=== PATIENT | male | born 1990 | race Hispanic/Latino ===

== ENCOUNTER 2022-03-23 05:50 | Day surgery (SDC) | payer OTHER ==
[2022-03-17 10:09] VITALS: BP 146/82
[2022-03-17 10:46] LABS: BASOPHIL # 0.1 10^3/uL (0.0-0.1); BASOPHIL % 0.7 % (0.0-0.2); EOSINOPHIL # 0.2 10^3/uL (0.0-0.2); EOSINOPHIL % 2.2 % (0.0-5.0); LYMPHOCYTES # 1.79 10^3/uL1 (1.0-4.8); LYMPHOCYTES % 24.2 % (24.0-44.0); MEAN CORP HGB 32.1 pg (26-34); MONOCYTES # 0.6 10^3/uL (0.3-0.8); MONOCYTES % 8.4 % (5.0-12.0); NEUTROPHIL # 4.8 10^3/uL (1.8-7.7); NEUTROPHILS % 64.4 % (41.0-85.0); PLATELET COUNT 318 10^3/uL (150-400); RED CELL DISTRIBUTION WIDTH 11.8 % (11.5-14.5)
[2022-03-17 11:03] LABS: CARBON DIOXIDE 26.7 mmol/L (20.0-32)
[2022-03-23] VITALS (7 sets, daily range): BP systolic 122–169; BP diastolic 60–94
[~2022-03-23] VITALS: Ht 182.9 cm; Wt 112.0 kg
[~2022-03-23 05:50] MED LIST: ANCEF ONE; LACTATED RINGERS 1,000 ML ONE; NS 100ML 100 ML IV ONE; PANT40TA6 PO
[2022-03-23] MEDS ORDERED: LACTATED RINGERS 1,000 ML IV SCH (06:00)
[2022-03-23] MEDS ORDERED: ANCEF 2 GM in NS 100ML 100 ML IV ONE (06:00)
[2022-03-23] MEDS ORDERED: TORADOL ONE (07:28)
[2022-03-23] MEDS ORDERED: XYLOCAINE 2% 5ML VIAL ONE (07:28)
[2022-03-23] MEDS ORDERED: DECADRON ONE (07:29)
[2022-03-23] MEDS ORDERED: SUBLIMAZE ONE (07:29)
[2022-03-23] MEDS ORDERED: ZOFRAN ONE (07:29)
[2022-03-23] MEDS ORDERED: DIPRIVAN IV ONE (07:29)
[2022-03-23] MEDS ORDERED: DILAUDID ONE (07:30)
[2022-03-23] MEDS ORDERED: NS 3000ML IRR IR ONE (07:32)
[2022-03-23] MEDS ORDERED: XYLOCAINE 1%-EPI 1:100,000 ONE (07:32)
[2022-03-23] MEDS ORDERED: SODIUM CHLORIDE IRR BOTTLE IR ONE (07:32)
[2022-03-23] MEDS ORDERED: VERSED ONE (08:10)
--- NOTE | 2022-03-23 09:59 | OPH ---
DATE OF SURGERY: 03/23/2022 DICTATOR NAME: Zach Fletcher MD PREOPERATIVE DIAGNOSIS: Osteochondral fracture of the right talus. POSTOPERATIVE DIAGNOSIS: Osteochondral fracture of the right talus. OPERATIVE PROCEDURES: 1. Diagnostic arthroscopy of the right ankle. 2. Subchondroplasty of the right talus. SURGEON: Zach Fletcher MD ANESTHESIA: LMA. TOURNIQUET TIME: 61 minutes at 300 mmHg. DRAINS: None. BLOOD LOSS: 10 mL. DESCRIPTION OF INDICATIONS: The patient is a 31-year-old male who injured his right ankle in 12/2021 while at work. The patient denies any previous problems with his ankle. Despite conservative treatment, the patient continued to complain of pain medially about the ankle as well as painful popping and catching. The patient's x-rays and MRI scan showed what appeared to be an osteochondral fracture about the superior medial dome of the talus. There was a question as to whether the cartilage was still intact or if it had collapsed. The patient was taken to the operating room today for arthroscopy to evaluate whether the lesion had collapsed and needed to be drilled and debrided or whether the cartilage was still intact and it would be amenable to subchondroplasty. DESCRIPTION OF PROCEDURE: The patient was placed on the operating table in the supine position. LMA anesthetic was induced without difficulty. The patient had the well-padded tourniquet placed around the right thigh. The right lower extremity was sterilely prepped and draped. The patient had the arthroscopic portals made anterolateral and anteromedial. The arthroscope was introduced anterolaterally. The patient had some osteophytes distally about the talonavicular area. There were no loose bodies encountered. He had a small spur about the distal end of his tibia, but did not appear to have any significant impingement. The patient's talus was noted to be intact medially as well as laterally. There was no collapse of the articular cartilage, so we decided to proceed with subchondroplasty. Using C-arm control, the cannulated drill was then drilled into the defect in the medial superior dome of the talus. The position of the cannulated drill appeared to be satisfactory. We then injected the talar defect with a total of 12 mL of calcium pyrophosphate. Arthroscope was reintroduced into the joint. There was no extravasation of the calcium pyrophosphate into the joint. Once the calcium pyrophosphate had set up, then the drill was removed. The wounds were closed with a 3-0 Ethilon. Compressive dressing consisting of Adaptic, 4 x 4s, cast padding and an Michael wrap was applied. The patient was extubated in the operating room and sent to recovery in stable condition. Zach Fletcher MD DR: EUGENE/DAVID TID: [id number] RECEIPT: [id number]
[2022-03-23] MEDS ORDERED: TRAM-47 PO (10:42)
== END 2022-03-23 10:50 | disposition home or self-care (01) ==
LOC: SDC 05:50
PROVIDERS: ATTEND Orthopaedic Surgery
DX: S92.141A Displaced dome fracture of right talus, initial encounter for closed fracture (principal); K21.9 Gastro-esophageal reflux disease without esophagitis; Z87.891 Personal history of nicotine dependence; Z72.89 Other problems related to lifestyle; Z82.49 Family history of ischemic heart disease and other diseases of the circulatory system; X58.XXXA Exposure to other specified factors, initial encounter; Y93.89 Activity, other specified; Y92.89 Other specified places as the place of occurrence of the external cause; Y99.0 Civilian activity done for income or pay
CPT/HCPCS: 80053; 85025; 36415; 29999; J7120; A4217 ×2; A4649 ×2; J0690; J1100; J1170; J3490; J2001; J2405; J2250; J1885; J3010; C1713; 76000